=== PATIENT | female | born 1980 ===

== ENCOUNTER 2019-06-12 01:33 | Emergency (ER) | payer SELFPAY ==
[~2019-06-12] VITALS: Ht 152.4 cm; Wt 54.5 kg
[2019-06-12 01:34] VITALS: TEMP 98.7
[2019-06-12 02:12] LABS: CALCIUM 8.7 mg/dL (8.4-10.2); CREATININE, serum 0.54 (0.52-1.25); POTASSIUM 3.1 mmol/L (3.4-5.0)
[2019-06-12] MEDS ORDERED: NORCO 325 MG-51 TAB PO (05:10)
[2019-06-12 05:12] VITALS: BP 124/81; PULSE 85
== END 2019-06-12 05:29 | disposition home or self-care (01) ==
LOC: COL.ER 01:33
PROVIDERS: Emergency Medicine
DX: S59.902A Unspecified injury of left elbow, initial encounter (principal); F10.129 Alcohol abuse with intoxication, unspecified; W19.XXXA Unspecified fall, initial encounter; Y92.838 Other recreation area as the place of occurrence of the external cause
CPT/HCPCS: J3010; Q4050